=== PATIENT | male | born 1995 | race Caucasian/White ===

== ENCOUNTER 2016-06-16 08:51 | Emergency (ER) | payer OTHER ==
[~2016-06-16] VITALS: Wt 68.0 kg
--- NOTE | ~2016-06-16 | O ---
[place], [place] OPERATIVE NOTE NAME: FOREST GANT UNIT #: [id number] ROOM: DOCTOR: AIDEN SOSA MD BIRTHDATE: [birth year] DOS: 06/16/2016 PREOPERATIVE DIAGNOSIS: Acute appendicitis. POSTOPERATIVE DIAGNOSIS: Acute appendicitis. PROCEDURE: Laparoscopic appendectomy. SURGEON: Aiden Sosa MD MANAGER HEART: MS3. ANESTHESIA: GET. INDICATIONS: This is a 20-year-old gentleman who presented to the Emergency Room with a history of right lower quadrant pain. A CAT scan showed acute appendicitis. It was decided to take the patient to the operating room for a laparoscopic possible open appendectomy. The procedure and its complications were explained to the patient in detail preoperatively. Complications that were discussed included but were not limited to bleeding, infection, hematoma/seroma/abscess formation, prolonged postoperative pain, and damage to underlying vital structures. He agreed to proceed. DESCRIPTION OF PROCEDURE: After identifying the patient, the patient was brought to the operating suite and laid in the supine position. After induction of general anesthesia, a Pal catheter was placed in the urinary bladder, and the left upper extremity was stuck to the patient's side. A time-out procedure was called, and the parts were then painted and draped in the usual sterile fashion. An incision was made in a curvilinear fashion superior to the umbilicus. The skin and the subcutaneous tissue were incised. The fascia was incised and 2 stay sutures were taken on either side with the help of 0 Vicryl. The peritoneum was opened and a 12 mm Julio C port was introduced. A pneumoperitoneum was created. Under direct vision, a left lower quadrant incision of 10 mm and a suprapubic incision of 5 mm were made and appropriate sized ports were introduced. The patient was placed in a Trendelenburg, right side up position. The cecum was identified and the appendix was visualized by mobilizing the cecum medially. The appendix was acutely inflamed mainly at the region of the tip and was from the surrounding omentum with the help of blunt dissection. Thereafter, the mesoappendix as well as the appendicular base was stapled across with the help of an Endo-WHIT stapler. The appendix was placed in an EndoCatch bag and removed from the peritoneal cavity and sent for histopathological diagnosis. Hemostasis was confirmed in the appendiceal stump and the suprapubic and left lower quadrant ports were removed and there was no bleeding seen. The umbilical port was removed and the fascial defect was approximated with the help of 0 Vicryl in a [id number] fashion. The incisions were then approximated with the help of 4-0 Vicryl after the edges were infiltrated with local anesthesia (1% plain lidocaine). Dressings were given. Pal catheter was removed. The patient was extubated uneventfully and brought back to the recovery room in stable fashion. There were no complications. Dr. Aiden Sosa, the attending surgeon, was present throughout [place], [place] OPERATIVE NOTE NAME: FOREST GANT UNIT #: [id number] ROOM: DOCTOR: AIDEN SOSA MD BIRTHDATE: [birth year] the operating case. Aiden Sosa MD CM:OPRECORD:OPERATIVE NOTE [id number] AIDEN SOSA MD 06/16/16 1446 interface
[~2016-06-16 08:51] MED LIST: NKHM; TYLENOL W/CODEI1 TA2 PO
[2016-06-16 09:32] LABS: HEMATOCRIT 43.2 % (42.0-52.0); HEMOGLOBIN 15.1 g/dl (14.0-18.0); MEAN CELL VOLUME 86.4 fl (80.0-94.0); MEAN CORPUSCULAR HGB 30.2 pg (27.0-31.0); MEAN PLATELET VOLUME 11.1 fl (9.6-12.3); PLATELET COUNT AUTOMATED 196 10*3/uL (130-400); RED CELL DISTRI WIDTH 12.9 % (0-14.5); WHITE BLOOD COUNT 14.6 10*3/uL (4.8-10.8)
[2016-06-16 09:48] LABS: ALBUMIN 4.1 gm/dl (3.1-4.5); ALKALINE PHOSPHATASE 54 U/L (45-117); BUN 12 mg/dl (7-24); CARBON DIOXIDE 30 mmol/L (21-32); CHLORIDE 101 mmol/L (98-107); EST GLOM FILT AFRICAN AMERICAN > 60 ml/min; GLUCOSE 104 mg/dL (65-99); POTASSIUM 4.1 mmol/L (3.5-5.1); SGOT/AST 11 IU/L (3-35); SGPT/ALT 19 U/L (12-78); SODIUM 140 mmol/L (136-145); TOTAL PROTEIN 7.3 gm/dL (6.4-8.2)
[2016-06-16 09:54] LABS: ATYPICAL LYMPHS 2 % (0-0); LYMPHOCYTE # 1.5 10*3/uL (1.3-4.4); MONOCYTE # 0.7 10*3/uL (0.1-1.0); NEUTROPHIL # 12.4 10*3/uL (2.3-7.9); NEUTROPHILS 85 % (47-73); PLATELET SUFFICIENCY NORMAL (NORMAL); TOTAL CELLS COUNTED 100 #CELLS
[2016-06-16 10:23] LABS: BILIRUBIN NEGATIVE (NEGATIVE); BLOOD NEGATIVE (NEGATIVE); CLARITY CLEAR (CLEAR); COLOR YELLOW (YELLOW); GLUCOSE NEGATIVE (NEGATIVE); KETONE NEGATIVE (NEGATIVE); LEUKO ESTERASE NEGATIVE (NEGATIVE); NITRITE NEGATIVE (NEGATIVE); PROTEIN TRACE (NEGATIVE); SPECIFIC GRAVITY 1.025 (1.005-1.030); UROBILINOGEN 0.2 E.U./dl (0.2-1.0)
[2016-06-16 10:46] LABS: BACTERIA 1+; MUCOUS 1+; URINE REFLEX COMMENT YES (NO)
[2016-06-16] MEDS ORDERED: HYDROCODONE BIT1 T11 PO (15:15)
== END 2016-06-16 20:55 | disposition home or self-care (01) ==
LOC: ED 08:51 → EDHOLD 12:15 → SDC 12:28 → ED 12:28
PROVIDERS: Nurse Practitioner Family
DX: K91.870 Postprocedural hematoma of a digestive system organ or structure following a digestive system procedure (principal); F17.200 Nicotine dependence, unspecified, uncomplicated; Z48.01 Encounter for change or removal of surgical wound dressing; Z90.49 Acquired absence of other specified parts of digestive tract; Z98.890 Other specified postprocedural states

== ENCOUNTER 2016-06-22 12:23 | Emergency (ER) | payer OTHER ==
[~2016-06-22] VITALS: Ht 193 cm; Wt 68.0 kg
[~2016-06-22 12:23] MED LIST changes: +HYDROCODONE BIT1 T11 PO
[2016-06-22 12:34] VITALS: BP 126/79
[2016-06-22] MEDS ORDERED: NORCO 5-325 TA1 EACH PO (15:09)
== END 2016-06-22 15:18 | disposition home or self-care (01) ==
LOC: ED 12:23
DX: S62.91XA Unspecified fracture of right hand, initial encounter for closed fracture (principal); F17.200 Nicotine dependence, unspecified, uncomplicated; W22.8XXA Striking against or struck by other objects, initial encounter; Y93.9 Activity, unspecified; Y92.9 Unspecified place or not applicable; Y99.9 Unspecified external cause status

== ENCOUNTER → 2016-07-06 | Day surgery (SDC) | payer OTHER ==
[2016-07-04 14:36] LABS: BASO % 0.5 % (0.0-1.0); EOS % 0.7 % (1.0-4.0); HEMATOCRIT 42.5 % (42.0-52.0); HEMOGLOBIN 14.4 g/dl (14.0-18.0); LYMPH # 1.4 10*3/uL (1.3-4.4); LYMPH % 23.6 % (27.0-41.0); MEAN CELL VOLUME 86.9 fl (80.0-94.0); MEAN CORPUSCULAR HGB 29.4 pg (27.0-31.0); MEAN CORPUSCULAR HGB CONC 33.9 g/dl (33.0-37.0); MEAN PLATELET VOLUME 11.1 fl (9.6-12.3); MONO # 0.5 10*3/uL (0.1-1.0); MONO % 7.7 % (3.0-9.0); NEUT # 4.1 10*3/uL (2.3-7.9); NEUT % 67.3 % (47.0-73.0); PLATELET COUNT AUTOMATED 217 10*3/uL (130-400); RED BLOOD COUNT 4.89 10*6/uL (4.50-5.90); RED CELL DISTRI WIDTH 12.4 % (0-14.5); WHITE BLOOD COUNT 6.1 10*3/uL (4.8-10.8)
[2016-07-04 15:01] LABS: BUN 9 mg/dl (7-24); CARBON DIOXIDE 32 mmol/L (21-32); CHLORIDE 105 mmol/L (98-107); EST GLOM FILT AFRICAN AMERICAN > 60 ml/min; GLUCOSE 84 mg/dL (65-99); POTASSIUM 4.2 mmol/L (3.5-5.1); SODIUM 143 mmol/L (136-145)
[2016-07-06] VITALS (9 sets, daily range): BP systolic 100–128; BP diastolic 62–88
[~2016-07-06] VITALS: Ht 193 cm; Wt 68.0 kg
[~2016-07-06] MED LIST changes: +NORCO 5-325 TA1 EACH PO; +ZOFRAN4 MG PO
--- NOTE | ~2016-07-06 | O ---
[place], [place] OPERATIVE NOTE NAME: [id number] UNIT #: [id number] ROOM: DOCTOR: YOVANY BLANCHARD DO BIRTHDATE: [birth year] DOS: 07/06/2016 PREPROCEDURE DIAGNOSIS: Right 4th and 5th metacarpal shaft fractures. POSTPROCEDURE DIAGNOSIS: Right 4th and 5th metacarpal shaft fractures. OPERATIVE PROCEDURE: Open reduction and internal fixation of right 4th and 5th metacarpal shaft fractures. SURGEON: Dr. Yovany Blanchard. LIME SUPERVISOR: Gerardo. ANESTHESIA: Davis, SUBSTATION MANAGER; general LMA intubation. INDICATIONS: The patient is a 21-year-old male who states that he struck a wall approximately 2 weeks ago suffering a fracture of the 4th and 5th metacarpal shafts with complete displacement of the 4th metacarpal. The risks and benefits of the procedure were explained to the patient and his mother preoperatively. Preoperative labs and x-rays were obtained. PROCEDURE: The right hand was marked in the holding area. The patient was brought to the operative suite. Timeout was performed. The patient was placed on the operative table. General anesthetic with LMA intubation was performed. The patient received Ancef preoperatively. The right upper extremity was prepped and draped in the usual orthopedic fashion. The arm was exsanguinated and the tourniquet was inflated to 250 mmHg. C-arm was utilized to identify the fractures. The base of the 5th metacarpal and 4th metacarpal were marked with a marking pen and a longitudinal incision approximately 1 cm in length was made at both locations. The incisions were made sharply with a scalpel. Subcutaneous tissue was spread down to the level of the extensor tendons. A [place] elevator was used to retract the extensor tendons. The Biomet small bone fixation nail system was utilized to place an awl at the base of the 5th metacarpal at the level of the metaphyseal region. A 1.6 mm SS nail was advanced and noted to have a difficulty passing the fracture site. A 1 cm incision was made at the fracture site and any soft tissue was cleared from the canal of the 5th metacarpal. The SS nail was then advanced to the distal end of the intramedullary canal of the 5th metacarpal. Positioning was evaluated under C-arm in multiple planes. The wire was cut and bent. Attention was then turned to the 4th metacarpal and in a similar fashion. The awl was used to open the distal metaphyseal region of the 4th metacarpal. The wire was advanced to the level of the fracture site. There was noted to be complete displacement. An incision was made at the level of the fracture. Direct reduction was performed and the wire was advanced from proximal to distal through the intramedullary canal of the 4th metacarpal. Positioning was evaluated under C-arm in multiple planes. The placement of the SS nail or wire at the 4th and 5th metacarpal was evaluated under C-arm in multiple planes. The wires were cut and bent. The rotation was evaluated at the digits and found to be adequate. The areas were copiously irrigated with normal saline. The [place], [place] OPERATIVE NOTE NAME: FOREST GANT UNIT #: [id number] ROOM: DOCTOR: YOVANY BLANCHARD DO BIRTHDATE: [birth year] tourniquet was released. The incisions were closed with 4-0 Prolene in a horizontal mattress suture fashion. Incisions were covered with Xeroform, 4 x 4s, cast padding and a well-padded volar splint from the level of the fingertips to the proximal forearm. An Bull bandage completed the dressing. The anesthetic was reversed. The patient was extubated and taken to the recovery room in satisfactory condition. Sponge and needle count correct. ESTIMATED BLOOD LOSS: Minimal. DRAINS: None. PACKING: None. COMPLICATIONS: None. SPECIMENS: None. FINDINGS: Fracture of the 4th and 5th metacarpal shafts. IMPLANTS: Biomet small bone fixation nail measuring 1.6 mm for the 5th metacarpal and 1.1 mm for the 4th metacarpal. YOVANY BLANCHARD DO CM:OPRECORD:OPERATIVE NOTE [id number] [id number] YOVANY BLANCHARD DO 07/06/16 1549 interface
== END | disposition home or self-care (01) ==
LOC: SDC 07-04 13:15
PROVIDERS: Orthopaedic Surgery
DX: S62.324A Displaced fracture of shaft of fourth metacarpal bone, right hand, initial encounter for closed fracture (principal); S62.326A Displaced fracture of shaft of fifth metacarpal bone, right hand, initial encounter for closed fracture; W22.8XXA Striking against or struck by other objects, initial encounter; Y93.89 Activity, other specified; Y92.89 Other specified places as the place of occurrence of the external cause; Y99.8 Other external cause status; F17.210 Nicotine dependence, cigarettes, uncomplicated

== ENCOUNTER → 2016-07-24 | Outpatient (CLI) | payer OTHER | END | disposition home or self-care (01) | LOC: ORTHO 01:52 | DX: S62.304D Unspecified fracture of fourth metacarpal bone, right hand, subsequent encounter for fracture with routine healing (principal); S62.306D Unspecified fracture of fifth metacarpal bone, right hand, subsequent encounter for fracture with routine healing; X58.XXXD Exposure to other specified factors, subsequent encounter ==

== ENCOUNTER → 2016-08-11 | Outpatient (CLI) | payer OTHER | END | disposition home or self-care (01) | LOC: ORTHO 03:47 | DX: S62.304D Unspecified fracture of fourth metacarpal bone, right hand, subsequent encounter for fracture with routine healing (principal); S62.306D Unspecified fracture of fifth metacarpal bone, right hand, subsequent encounter for fracture with routine healing; X58.XXXD Exposure to other specified factors, subsequent encounter ==

== ENCOUNTER → 2016-08-25 | Outpatient (CLI) | payer OTHER | END | disposition home or self-care (01) | LOC: ORTHO 02:56 | DX: S62.304D Unspecified fracture of fourth metacarpal bone, right hand, subsequent encounter for fracture with routine healing (principal); S62.306D Unspecified fracture of fifth metacarpal bone, right hand, subsequent encounter for fracture with routine healing; X58.XXXD Exposure to other specified factors, subsequent encounter ==

== ENCOUNTER → 2016-09-06 | Outpatient (CLI) | payer OTHER | END | disposition home or self-care (01) | LOC: ORTHO 02:08 | DX: S62.306D Unspecified fracture of fifth metacarpal bone, right hand, subsequent encounter for fracture with routine healing (principal); S62.304D Unspecified fracture of fourth metacarpal bone, right hand, subsequent encounter for fracture with routine healing; X58.XXXD Exposure to other specified factors, subsequent encounter ==

== ENCOUNTER 2017-05-15 05:29 | Emergency (ER) | payer SELFPAY ==
[~2017-05-15] VITALS: Ht 193 cm; Wt 70.3 kg
[2017-05-15 05:46] VITALS: BP 131/79
[2017-05-15 06:24] LABS: BILIRUBIN NEGATIVE (NEGATIVE); BLOOD TRACE-LYSED (NEGATIVE); CLARITY SL CLOUDY (CLEAR); COLOR YELLOW (YELLOW); GLUCOSE NEGATIVE (NEGATIVE); KETONE NEGATIVE (NEGATIVE); LEUKO ESTERASE 1+ (NEGATIVE); NITRITE NEGATIVE (NEGATIVE); SPECIFIC GRAVITY 1.025 (1.005-1.030); UROBILINOGEN 0.2 E.U./dl (0.2-1.0)
[2017-05-15 06:49] LABS: BACTERIA 3+; WBC TNTC wbc/hpf (0-5)
== END 2017-05-15 06:04 | disposition home or self-care (01) ==
LOC: ED 05:29
PROVIDERS: Student in an Organized Health Care Education/Training Program
DX: Z00.8 Encounter for other general examination (principal)